=== PATIENT | male | born 1990 | race African-American/Black ===

== ENCOUNTER 2019-05-30 23:49 | Emergency (ER) | payer MEDICAID ==
[~2019-05-30] VITALS: Ht 172.7 cm; Wt 73.0 kg
[2019-05-31] MEDS ORDERED: KETOROLAC 30MG/ML VIAL IV STA (00:34)
[2019-05-31] MEDS ORDERED: ASPIRIN 81MG TABLET PO ONE (00:45)
[2019-05-31] MEDS ORDERED: MAGNESIUM/ALUMINUM HYDROXIDE/SIMETHICONE 30ML UDC PO ONE (00:45)
[2019-05-31] MEDS ORDERED: VISCOUS LIDOCAINE 2% 15 ML UDC PO ONE (00:45)
[2019-05-31 02:00] VITALS: BP 127/78
== END 2019-05-31 02:09 | disposition home or self-care (01) ==
LOC: ER 23:49
DX: F15.10 Other stimulant abuse, uncomplicated (principal); R07.9 Chest pain, unspecified; R06.02 Shortness of breath; F17.200 Nicotine dependence, unspecified, uncomplicated
CPT/HCPCS: 36415; 84484; 93005; 96374; 99284; J1885; Z7610